=== PATIENT | female | born 1975 | race African-American/Black ===

== ENCOUNTER 2018-12-28 19:47 | Emergency (ER) | payer OTHER ==
[~2018-12-28] VITALS: Ht 167.6 cm; Wt 104.5 kg
[2018-12-28 19:56] VITALS: Ht 167.6 cm; Wt 104.5 kg
[2018-12-28 20:34] LABS: BASOPHILS 0.3 % (0-2); EOSINOPHILS 1.8 % (0-7); HEMATOCRIT 37.3 % (36.0-48.0); HEMOGLOBIN 12.5 g/dL (12-16); IMMATURE GRANULOCYTES 0.2 % (0-5); LYMPHOCYTES 47.3 % (15-50); MCH 31.7 pg (26.0-34.0); MCHC 33.5 g/dL (31.0-37.0); MCV 94.7 fL (80.0-100.0); MEAN PLATELET VOLUME 9.8 fL (7.4-10.4); MONOCYTES 7.5 % (2-11); NEUTROPHILS 42.9 % (40-80); PLATELET COUNT 266 10x3/uL (130-400); RBC 3.94 10x6/uL (4.00-5.40); RDW 13.8 % (11.5-14.5); WBC 6.3 10x3/uL (4.8-10.8)
[2018-12-28 21:00] LABS: ALBUMIN 3.8 g/dL (3.4-5.0); ANION GAP 13.6 mmol/L (8-16); BILIRUBIN - TOTAL 0.35 mg/dL (0.2-1.3); CALCIUM 9.3 mg/dL (8.5-10.1); CARBON DIOXIDE 29.1 mmol/L (21.0-32.0); POTASSIUM - SERUM 3.7 mmol/L (3.5-5.1); PROTEIN - SERUM 8.8 g/dL (6.4-8.2)
[2018-12-28] MEDS ORDERED: EC-NAPROSYN500 MG PO (22:59)
[2018-12-28 23:19] VITALS: BP 128/86
== END 2018-12-28 23:21 | disposition home or self-care (01) ==
LOC: D.ER 19:47
PROVIDERS: Emergency Medicine
DX: M79.662 Pain in left lower leg (principal); R60.0 Localized edema

== ENCOUNTER 2020-05-17 19:27 | Emergency (ER) | payer OTHER ==
[2018-12-28 19:56] VITALS: BMI 37.2
[~2020-05-17 19:27] MED LIST: EC-NAPROSYN500 MG PO
== END 2020-05-17 22:17 | disposition left against medical advice (07) ==
LOC: D.ER 19:27
DX: R20.0 Anesthesia of skin (principal)